=== PATIENT | female | born 2000 | race Two or more races ===

== ENCOUNTER 2021-10-20 16:31 | Emergency (ER) | payer OTHER ==
[~2021-10-20] VITALS: Ht 154.9 cm; Wt 44.5 kg
== END 2021-10-20 19:49 | disposition home or self-care (01) ==
LOC: EMR PED 16:31
DX: J10.1 Influenza due to other identified influenza virus with other respiratory manifestations (principal); B34.9 Viral infection, unspecified; Z20.822 Contact with and (suspected) exposure to COVID-19